=== PATIENT | male | born 1955 | race Caucasian/White ===

== ENCOUNTER → 2018-11-30 | Outpatient (CLI) | payer BC | END | disposition home or self-care (01) | LOC: CFH 07:41 | PROVIDERS: ATTEND Internal Medicine Cardiovascular Disease | DX: Z13.6 Encounter for screening for cardiovascular disorders (principal); I51.7 Cardiomegaly | CPT/HCPCS: 93306 ==

== ENCOUNTER 2019-06-21 10:51 | Inpatient (IN) | payer BC ==
[~2019-06-21] VITALS: Ht 170.2 cm; Wt 85.0 kg
[2019-06-21] MEDS ORDERED: SODIUM CHLORIDE FLUSH 10ML SYR IVF ONE (11:30)
--- NOTE | 2019-06-21 11:34 | NUR ---
PT RESTING IN [facility] WITH CALL LIGHT WITHIN REACH. IV ESTABLISHED FOR CT SCAN.
[2019-06-21 11:52] LABS: BASOPHILS # (AUTO) 0.02 x10^3/uL (0-0.1); BASOPHILS % (AUTO) 0 % (0-1); EOSINOPHILS # (AUTO) 0.13 x10^3/uL (0-0.4); EOSINOPHILS % (AUTO) 2 % (1-7); LYMPHOCYTES # (AUTO) 1.53 x10^3/uL (1-3.4); LYMPHOCYTES % (AUTO) 23 % (22-44); MD NO; MEAN CORPUSCULAR HEMOGLOBIN 30.8 pg (27.5-34.5); MEAN CORPUSCULAR HGB CONC 34.2 g/dL (33.2-36.2); MEAN PLATELET VOLUME 11.6 fL (7.4-10.4); MONOCYTES # (AUTO) 0.44 x10^3/uL (0.2-0.8); MONOCYTES % (AUTO) 7 % (2-9); NEUTROPHILS # (AUTO) 4.65 x10^3/uL (1.8-6.8); NEUTROPHILS % (AUTO) 69 % (42-75); PLATELET COUNT 152 x10^3/uL (130-400); RED BLOOD COUNT 4.94 x10^6/uL (4.38-5.82); RED CELL DISTRIBUTION WIDTH 12.8 % (9.4-14.8)
[2019-06-21] MEDS ORDERED: CLINDAMYCIN PMX 300MG/50ML 50 ML IV ONE (12:00)
[2019-06-21 12:01] LABS: ALBUMIN 3.6 g/dL (3.4-5.0); CALCIUM 8.6 mg/dL (8.5-10.1); CHLORIDE 109 mmol/L (98-107)
[2019-06-21 12:04] LABS: ANION GAP 8 mmol/L (5-15); CREATININE 1.24 mg/dL (0.7-1.3)
--- NOTE | 2019-06-21 12:07 | NUR ---
PT RESTING IN [facility] WITH CALL LIGHT WITHIN REACH, AWAITING CT SCAN
--- NOTE | 2019-06-21 12:21 | NUR ---
PT TO CT
[2019-06-21] MEDS ORDERED: OMNIPAQUE 350 MG/ML, 100ML BOTTLE ONE (12:38)
--- NOTE | 2019-06-21 13:20 | NUR ---
PT RESTING IN GURNEY WITH DAUGHTER AT BEDSIDE, AWAITING RECHECK
[2019-06-21] MEDS ORDERED: HYDROmorphone 1 MG/ML, 1ML VIAL ONE (13:36)
[2019-06-21] MEDS ORDERED: LIDOCAINE-MPF 1%, 5ML ONE ×2 (13:36→13:51)
[2019-06-21] MEDS ORDERED: ONDANSETRON 2MG/ML, 2ML ONE ×2 (13:41→16:34)
[2019-06-21] MEDS ORDERED: SULF1TAB24 PO (13:49)
[2019-06-21] MEDS ORDERED: ATOR20TA37 PO (13:49)
[2019-06-21] MEDS ORDERED: HYDROmorphone 2 MG/ML, 1ML IVPush PRN (14:00)
[2019-06-21] MEDS ORDERED: ONDANSETRON 2MG/ML, 2ML IVPush ONE (14:00)
[2019-06-21] MEDS ORDERED: LIDOCAINE 1%, 10ML INFIL ONE (14:00)
--- NOTE | 2019-06-21 14:02 | NUR ---
PA AT BEDSIDE FOR I&D, PT TO BE ADMITTED
[2019-06-21] MEDS ORDERED: SODIUM CHLORIDE FLUSH 10ML SYR IVF PRN (14:30)
--- NOTE | 2019-06-21 14:51 | NUR ---
REPORT TO JASE FISCHER
[2019-06-21] MEDS ORDERED: ONDANSETRON 2MG/ML, 2ML IVPush PRN (15:00)
[2019-06-21] MEDS ORDERED: hydrALAzine 20 MG/ML, 1ML IVPush PRN (15:00)
[2019-06-21] MEDS ORDERED: morphine SULFATE 10 MG/ML, 1ML IVPush PRN (15:00)
[2019-06-21] MEDS ORDERED: BUTALB/APAP/CAFFEINE 50MG/325MG/40MG PO PRN (15:00)
[2019-06-21] MEDS ORDERED: ACETAMINOPHEN 325 MG TABLET PO PRN (15:00)
[2019-06-21 15:30] VITALS: BP 112/69
[2019-06-21] MEDS ORDERED: CLINDAMYCIN PMX 600MG/50ML 50 ML IV SCH (15:30)
[2019-06-21] MEDS ORDERED: MIDAZOLAM 1 MG/ML, 2ML ONE (16:08)
[2019-06-21] MEDS ORDERED: FENTANYL PF 100 MCG/2ML ONE ×2 (16:08→16:57)
[2019-06-21] MEDS ORDERED: BUPIVACAINE/PF 0.5% ONE (16:12)
[2019-06-21] MEDS ORDERED: KETOROLAC 30 MG/1 ML ONE (16:16)
[2019-06-21] MEDS ORDERED: SUCCINYLCHOLINE 20 MG/ML, 10ML ONE (16:34)
[2019-06-21] MEDS ORDERED: DEXAMETHASONE 4 MG/ML, 1ML ONE (16:34)
[2019-06-21] MEDS ORDERED: NEOSTIGMINE 1 MG/ML, 10ML ONE (16:34)
[2019-06-21] MEDS ORDERED: PROPOFOL 10 MG/ML, 20ML ONE (16:34)
[2019-06-21] MEDS ORDERED: ROCURONIUM 10MG/ML,5ML ONE ×2 (16:34)
[2019-06-21] MEDS ORDERED: CEFAZOLIN 1,000 MG ONE (16:34)
[2019-06-21] MEDS ORDERED: GLYCOPYRROLATE 0.2MG/1ML, 5ML ONE (16:34)
[2019-06-21] MEDS ORDERED: OXYcodone 5 MG/5 ML ORAL.SOL UDC ONE (16:57)
[2019-06-21] MEDS ORDERED: LABETALOL 5MG/ML, 20ML IV PRN (17:00)
[2019-06-21] MEDS ORDERED: PROMETHAZINE 25 MG/ML, 1ML IV PRN (17:00)
[2019-06-21] MEDS ORDERED: ONDANSETRON 2MG/ML, 2ML IV PRN (17:00)
[2019-06-21] MEDS ORDERED: hydrALAzine 20 MG/ML, 1ML IV PRN (17:00)
[2019-06-21] MEDS ORDERED: OXYcodone 5 MG/5 ML ORAL.SOL UDC PO PRN (17:00)
[2019-06-21] MEDS: FENTANYL PF 100 MCG/2ML IV PRN ×2 (17:06→17:15)
[2019-06-21] MEDS ORDERED: HYDROmorphone 2 MG/ML, 1ML ONE (17:09)
[2019-06-21] MEDS: HYDROmorphone 2 MG/ML, 1ML IVPush PRN ×2 (17:11→17:23)
[2019-06-21] MEDS: AMPICILLIN/SULBACTAM 3 GM in SODIUM CHLORIDE 0.9% 100 ML IV SCH (18:41)
[2019-06-21 19:40] VITALS: BP 130/85
[2019-06-21] MEDS: CLINDAMYCIN PMX 600MG/50ML 50 ML IV SCH (19:57)
[2019-06-21] MEDS: ATORVASTATIN 20 MG TABLET PO SCH (21:26)
[2019-06-21] MEDS: HYDROcodone/APAP 5/325 TABLET PO PRN (22:08)
[2019-06-22 00:23] VITALS: BP 129/81
[2019-06-22] MEDS: AMPICILLIN/SULBACTAM 3 GM in SODIUM CHLORIDE 0.9% 100 ML IV SCH ×4 (00:33→18:13)
[2019-06-22] MEDS: CLINDAMYCIN PMX 600MG/50ML 50 ML IV SCH ×3 (04:01→20:11)
[2019-06-22 04:05] VITALS: BP 128/78
[2019-06-22 04:59] LABS: ANION GAP 7 mmol/L (5-15); CHLORIDE 106 mmol/L (98-107)
[2019-06-22 05:00] LABS: CREATININE 1.23 mg/dL (0.7-1.3)
[2019-06-22 05:01] LABS: BASOPHILS # (AUTO) 0.02 x10^3/uL (0-0.1); BASOPHILS % (AUTO) 0 % (0-1); EOSINOPHILS % (AUTO) 0 % (1-7); LYMPHOCYTES # (AUTO) 0.92 x10^3/uL (1-3.4); LYMPHOCYTES % (AUTO) 10 % (22-44); MD NO; MEAN CORPUSCULAR HEMOGLOBIN 29.4 pg (27.5-34.5); MEAN CORPUSCULAR HGB CONC 32.5 g/dL (33.2-36.2); MEAN CORPUSCULAR VOLUME 90.6 fL (81-97); MEAN PLATELET VOLUME 11.7 fL (7.4-10.4); MONOCYTES # (AUTO) 0.31 x10^3/uL (0.2-0.8); MONOCYTES % (AUTO) 3 % (2-9); NEUTROPHILS # (AUTO) 7.73 x10^3/uL (1.8-6.8); NEUTROPHILS % (AUTO) 86 % (42-75); PLATELET COUNT 175 x10^3/uL (130-400); RED BLOOD COUNT 4.92 x10^6/uL (4.38-5.82); RED CELL DISTRIBUTION WIDTH 12.8 % (9.4-14.8)
[2019-06-22] MEDS: HYDROcodone/APAP 5/325 TABLET PO PRN ×2 (05:41→12:00)
[2019-06-22 07:16] VITALS: BP 109/66
[2019-06-22] MEDS: ENOXAPARIN 40 MG/0.4 ML SQ SCH (09:39)
[2019-06-22 13:05] VITALS: BP 109/68
[2019-06-22] MEDS ORDERED: POLYETHYLENE GLYCOL 17 GM PACKET PO PRN (15:00)
[2019-06-22 19:54] VITALS: BP 101/63
[2019-06-22] MEDS: ATORVASTATIN 20 MG TABLET PO SCH (20:13)
[2019-06-23] MEDS: HYDROcodone/APAP 5/325 TABLET PO PRN ×3 (00:33→23:17)
[2019-06-23] MEDS: AMPICILLIN/SULBACTAM 3 GM in SODIUM CHLORIDE 0.9% 100 ML IV SCH ×4 (00:33→19:09)
[2019-06-23 01:18] VITALS: BP 97/60
[2019-06-23] MEDS: CLINDAMYCIN PMX 600MG/50ML 50 ML IV SCH ×3 (04:19→20:24)
[2019-06-23 07:36] VITALS: BP 93/54
[2019-06-23] MEDS: ENOXAPARIN 40 MG/0.4 ML SQ SCH (10:10)
[2019-06-23 13:39] VITALS: BP 98/57
[2019-06-23 18:49] VITALS: BP 95/62
[2019-06-23] MEDS: ATORVASTATIN 20 MG TABLET PO SCH (20:24)
[2019-06-24] MEDS: AMPICILLIN/SULBACTAM 3 GM in SODIUM CHLORIDE 0.9% 100 ML IV SCH ×4 (01:21→20:54)
[2019-06-24 02:30] VITALS: BP 129/67
[2019-06-24] MEDS: CLINDAMYCIN PMX 600MG/50ML 50 ML IV SCH ×3 (04:01→21:29)
[2019-06-24 07:14] VITALS: BP 117/73
[2019-06-24] MEDS: ENOXAPARIN 40 MG/0.4 ML SQ SCH ×2 (09:00→19:56)
[2019-06-24] MEDS ORDERED: NALOXONE 1 MG/ML, 2ML ONE (11:03)
[2019-06-24] MEDS ORDERED: FLUMAZENIL 0.1 MG/1 ML, 5ML ONE (11:03)
[2019-06-24] MEDS ORDERED: MIDAZOLAM 1 MG/ML, 5ML ONE (11:03)
[2019-06-24] MEDS ORDERED: FENTANYL PF 100 MCG/2ML ONE (11:03)
[2019-06-24 12:09] VITALS: BP 128/81
[2019-06-24 18:59] VITALS: BP 98/62
[2019-06-24] MEDS: ATORVASTATIN 20 MG TABLET PO SCH (19:54)
[2019-06-25] MEDS: HYDROcodone/APAP 5/325 TABLET PO PRN ×2 (01:05→05:37)
[2019-06-25] MEDS: AMPICILLIN/SULBACTAM 3 GM in SODIUM CHLORIDE 0.9% 100 ML IV SCH ×3 (03:04→15:33)
[2019-06-25 03:10] VITALS: BP 108/70
[2019-06-25] MEDS: CLINDAMYCIN PMX 600MG/50ML 50 ML IV SCH ×2 (05:22→13:47)
[2019-06-25 07:27] VITALS: BP 106/67
[2019-06-25] MEDS ORDERED: AMOX1TAB64 PO (13:51)
[2019-06-25] MEDS ORDERED: SULF1TAB24 PO (13:51)
[2019-06-25] MEDS ORDERED: LACT1TAB13 PO (13:51)
[2019-06-25 14:06] VITALS: BP 121/78
== END 2019-06-25 16:52 | disposition home or self-care (01) | DRG 478 ==
LOC: ED 11:13 → EDIP 14:09 → 3NW 15:25
PROVIDERS: ADMIT Internal Medicine; ATTEND Internal Medicine
PROC: 0Y9100Z Drainage of Left Buttock with Drainage Device, Open Approach (ICD-10-PCS; principal; 2019-06-21 18:00)
PROC: 0QB23ZX Excision of Right Pelvic Bone, Percutaneous Approach, Diagnostic (ICD-10-PCS; 2019-06-24)
DX: M89.9 Disorder of bone, unspecified (principal); L05.01 Pilonidal cyst with abscess; L03.317 Cellulitis of buttock; N40.0 Benign prostatic hyperplasia without lower urinary tract symptoms; C61 Malignant neoplasm of prostate; E78.5 Hyperlipidemia, unspecified; G47.33 Obstructive sleep apnea (adult) (pediatric); K59.00 Constipation, unspecified; Z80.0 Family history of malignant neoplasm of digestive organs; Z80.1 Family history of malignant neoplasm of trachea, bronchus and lung; Z80.3 Family history of malignant neoplasm of breast
CPT/HCPCS: 10060; 36415; 84155; 99285; S0020; 20225; 72193; 77012; 80048; 82040; 83883; 84153; 84165; 85025; 87070; 87075; 87205; 88304; 88307; 88311; 88342; 96365; 96375; 99156; 99157; G0103; G0378; J0295; J0690; J1100; J1170; J1650; J1885; J2250; J2405; J2704; J2710; J3010; Q9967; J0330; J2310

== ENCOUNTER 2019-06-26 08:00 | Outpatient (CLI) | payer BC | END 2019-06-26 23:59 | disposition home or self-care (01) | LOC: WOUND 08:00 | PROVIDERS: ATTEND Internal Medicine | DX: T81.89XA Other complications of procedures, not elsewhere classified, initial encounter (principal); L05.01 Pilonidal cyst with abscess; L05.02 Pilonidal sinus with abscess; E78.5 Hyperlipidemia, unspecified; M10.9 Gout, unspecified; G47.33 Obstructive sleep apnea (adult) (pediatric); Z85.46 Personal history of malignant neoplasm of prostate; Y92.89 Other specified places as the place of occurrence of the external cause; Y83.8 Other surgical procedures as the cause of abnormal reaction of the patient, or of later complication, without mention of misadventure at the time of the procedure | CPT/HCPCS: 97597; 99214 ==

== ENCOUNTER 2019-06-28 08:24 | Outpatient (CLI) | payer BC | END 2019-06-28 23:59 | disposition home or self-care (01) | LOC: WOUND 08:24 | PROVIDERS: ATTEND Family Medicine | DX: T81.89XD Other complications of procedures, not elsewhere classified, subsequent encounter (principal); L05.01 Pilonidal cyst with abscess; L05.02 Pilonidal sinus with abscess; M10.9 Gout, unspecified; E78.5 Hyperlipidemia, unspecified; G47.33 Obstructive sleep apnea (adult) (pediatric); Z85.46 Personal history of malignant neoplasm of prostate; Y83.8 Other surgical procedures as the cause of abnormal reaction of the patient, or of later complication, without mention of misadventure at the time of the procedure | CPT/HCPCS: 99212 ==

== ENCOUNTER 2019-07-01 08:09 | Outpatient (CLI) | payer BC | END 2019-07-01 23:59 | disposition home or self-care (01) | LOC: WOUND 08:09 | PROVIDERS: ATTEND Internal Medicine | DX: T81.89XD Other complications of procedures, not elsewhere classified, subsequent encounter (principal); L05.01 Pilonidal cyst with abscess; L05.02 Pilonidal sinus with abscess; E78.5 Hyperlipidemia, unspecified; M10.9 Gout, unspecified; G47.33 Obstructive sleep apnea (adult) (pediatric); Z85.46 Personal history of malignant neoplasm of prostate; Y83.8 Other surgical procedures as the cause of abnormal reaction of the patient, or of later complication, without mention of misadventure at the time of the procedure | CPT/HCPCS: 99213 ==

== ENCOUNTER 2019-07-03 08:31 | Outpatient (CLI) | payer BC | END 2019-07-03 23:59 | disposition home or self-care (01) | LOC: WOUND 08:31 | PROVIDERS: ATTEND Internal Medicine | DX: T81.89XD Other complications of procedures, not elsewhere classified, subsequent encounter (principal); L05.01 Pilonidal cyst with abscess; L05.02 Pilonidal sinus with abscess; E78.5 Hyperlipidemia, unspecified; M10.9 Gout, unspecified; G47.33 Obstructive sleep apnea (adult) (pediatric); Z85.46 Personal history of malignant neoplasm of prostate; Y83.8 Other surgical procedures as the cause of abnormal reaction of the patient, or of later complication, without mention of misadventure at the time of the procedure | CPT/HCPCS: 11042 ==

== ENCOUNTER 2019-07-05 12:57 | Outpatient (CLI) | payer BC | END 2019-07-05 23:59 | disposition home or self-care (01) | LOC: WOUND 12:57 | PROVIDERS: ATTEND Family Medicine | DX: T81.89XD Other complications of procedures, not elsewhere classified, subsequent encounter (principal); L05.01 Pilonidal cyst with abscess; L05.02 Pilonidal sinus with abscess; E78.5 Hyperlipidemia, unspecified; M10.9 Gout, unspecified; G47.33 Obstructive sleep apnea (adult) (pediatric); Z85.46 Personal history of malignant neoplasm of prostate; Y83.8 Other surgical procedures as the cause of abnormal reaction of the patient, or of later complication, without mention of misadventure at the time of the procedure | CPT/HCPCS: 99213 ==

== ENCOUNTER → 2019-09-11 | Outpatient (CLI) | payer BC ==
[~2019-09-11] MED LIST: AMOX1TAB64 PO; ATOR20TA37 PO; LACT1TAB13 PO; SULF1TAB24 PO
== END | disposition home or self-care (01) ==
LOC: WOUND 07:58
PROVIDERS: ATTEND Internal Medicine
DX: T81.89XD Other complications of procedures, not elsewhere classified, subsequent encounter (principal); L05.01 Pilonidal cyst with abscess; L05.02 Pilonidal sinus with abscess; E78.5 Hyperlipidemia, unspecified; M10.9 Gout, unspecified; G47.33 Obstructive sleep apnea (adult) (pediatric); Z85.46 Personal history of malignant neoplasm of prostate; Y83.8 Other surgical procedures as the cause of abnormal reaction of the patient, or of later complication, without mention of misadventure at the time of the procedure
CPT/HCPCS: 97597